=== PATIENT | male | born 1950 | race African-American/Black ===

== ENCOUNTER 2023-04-01 17:21 | Inpatient (IN) | payer OTHER ==
[2023-04-01 20:15] VITALS: BMI 23.1
[2023-04-01] MEDS ORDERED: MAG HYDROX/AL HYDROX/SIMETH 30 ML UNIT-DOSE CUP PO PRN (22:15)
[2023-04-01] MEDS ORDERED: LOPERAMIDE HCL 2 MG CAPSULE PO PRN (22:15)
[2023-04-01] MEDS ORDERED: BENZONATATE 200 MG CAPSULE PO PRN (22:15)
[2023-04-01] MEDS ORDERED: NALOXONE HCL (KLOXXADO) 8 MG SPRAY NS PRN (22:15)
[2023-04-01] MEDS ORDERED: IBUPROFEN 600 MG TABLET (FP) PO PRN (22:15)
[2023-04-01] MEDS ORDERED: NALOXONE HCL 0.4 MG/ML VIAL IM PRN (22:15)
[2023-04-01] MEDS ORDERED: COLLOIDAL OATMEAL 1 BAR EACH TP PRN (22:15)
[2023-04-01] MEDS ORDERED: MAGNESIUM HYDROX 2400MG/30ML ORAL SUSPENSION 30 ML CUP PO PRN (22:15)
[2023-04-01] MEDS ORDERED: IBUPROFEN 400 MG TABLET (FP) PO PRN (22:15)
[2023-04-01] MEDS ORDERED: guaiFENesin 600 MG TABLET.ER (FP) PO PRN (22:15)
[2023-04-01] MEDS ORDERED: AMMONIUM LACTATE 12% LOTION 225 GM BOTTLE TP PRN (22:15)
[2023-04-01] MEDS ORDERED: POLYETHYLENE GLYCOL (HEALTHYLAX) 3350 17 GM PACKET PO PRN (22:15)
[2023-04-01] MEDS ORDERED: BENZOCAINE/MENTHOL (CHLORASEPTIC ) LOZENGE MM PRN (22:15)
[2023-04-01] MEDS ORDERED: ACETAMINOPHEN 325 MG TABLET (FP) PO PRN (22:15)
[2023-04-02] MEDS: MELATONIN 5 MG TABLETS PO SCH ×2 (01:15→21:21)
[2023-04-02] MEDS: TUBERCULIN PPD 5 TU/0.1ML SYRINGE (IN PATIENT USE ONLY) ID ONE ×2 (02:37→02:39)
[2023-04-02] MEDS ORDERED: cloNIDine HCL 0.1 MG TABLET PO ONE (06:22)
[2023-04-02] MEDS: PRENATAL VITAMINS W/ FOLIC ACID TABLET (FP) PO SCH (09:57)
[2023-04-02] MEDS ORDERED: amLODIPine BESYLATE 2.5 MG TABLET (FP) PO SCH (11:00)
[2023-04-02 11:26] LABS: HEMATOCRIT 42.2 % (35.4-49); HEMOGLOBIN 13.6 GM/dL (11.7-16.9); MCH 27.3 pg (25.7-33.7); MCHC 32.2 g/dl (32.0-35.9); MEAN PLT VOLUME 10.2 fl (7.5-11.1); PLATELET COUNT 160 10^3/uL (134-434); RBC 4.97 M/mm3 (4.00-5.60); RDW 15.5 % (11.9-15.9)
[2023-04-02] MEDS: ASPIRIN COATED 81 MG TABLET.EC PO SCH (11:30)
[2023-04-02] MEDS: amLODIPine BESYLATE 2.5 MG TABLET (FP) PO SCH (11:30)
[2023-04-02 11:34] LABS: POTASSIUM 4.4 mmol/L (3.5-5.1)
[2023-04-02 11:57] LABS: ALBUMIN 3.6 g/dl (3.4-5.0); BLOOD UREA NITROGEN 14.9 mg/dL (7-18)
[2023-04-02 11:58] LABS: CALCIUM 8.9 mg/dL (8.5-10.1)
[2023-04-02 12:03] LABS: BILIRUBIN,TOTAL 0.5 mg/dL (0.2-1); TOT PROT 7.3 g/dl (6.4-8.2)
[2023-04-02] MEDS: THIAMINE HCL 100 MG TABLET (FP) PO SCH (21:21)
[2023-04-02] MEDS: levETIRAcetam 500 MG TABLET (FP) PO SCH (21:22)
[2023-04-03] MEDS: amLODIPine BESYLATE 2.5 MG TABLET (FP) PO SCH (06:14)
[2023-04-03 06:47] VITALS: TEMP 97.3
[2023-04-03] MEDS: PRENATAL VITAMINS W/ FOLIC ACID TABLET (FP) PO SCH (10:14)
[2023-04-03] MEDS: ASPIRIN COATED 81 MG TABLET.EC PO SCH (10:14)
[2023-04-03] MEDS: PANTOPRAZOLE 20 MG TABLET PO SCH (10:14)
[2023-04-03] MEDS: levETIRAcetam 500 MG TABLET (FP) PO SCH ×2 (10:14→21:36)
[2023-04-03 12:07] LABS: EPI CELLS 22 /uL (0-25.1); HYALINE CASTS 9 /uL (0-3.1); URINE APPEARANCE CLEAR; URINE BACTERIA 55 /uL (0-1359); URINE BILIRUBIN NEGATIVE (NEGATIVE); URINE COLOR YELLOW; URINE GLUCOSE (UA) NEGATIVE (NEGATIVE); URINE KETONE NEGATIVE (NEGATIVE); URINE LEUK ESTERASE 2+ (NEGATIVE); URINE NITRITE NEGATIVE (NEGATIVE); URINE PROTEIN NEGATIVE (NEGATIVE); URINE RBC 560 /uL (0-23.9); URINE UROBILINOGEN 0.2 mg/dL (0.2-1.0); URINE WBC 157 /uL (0-25.8)
[2023-04-03] MEDS: THIAMINE HCL 100 MG TABLET (FP) PO SCH (21:36)
[2023-04-03] MEDS: MELATONIN 5 MG TABLETS PO SCH (21:36)
[2023-04-04] MEDS: amLODIPine BESYLATE 2.5 MG TABLET (FP) PO SCH (06:32)
[2023-04-04 09:02] VITALS: BP 126/62; PULSE 59; RESP 16
[2023-04-04] MEDS: PANTOPRAZOLE 20 MG TABLET PO SCH (09:28)
[2023-04-04] MEDS: levETIRAcetam 500 MG TABLET (FP) PO SCH (09:28)
[2023-04-04] MEDS: ASPIRIN COATED 81 MG TABLET.EC PO SCH (09:28)
[2023-04-04] MEDS: PRENATAL VITAMINS W/ FOLIC ACID TABLET (FP) PO SCH (09:28)
== END 2023-04-04 10:50 | disposition left against medical advice (07) | DRG 770 ==
LOC: YASAS 17:21 → Y3W 23:30
PROVIDERS: ADMIT Allergy & Immunology; ATTEND Psychiatry & Neurology Pain Medicine
PROC: HZ42ZZZ Group Counseling for Substance Abuse Treatment, Cognitive-Behavioral (ICD-10-PCS; principal; 2023-04-01)
DX: F10.20 Alcohol dependence, uncomplicated (principal); I16.0 Hypertensive urgency; K21.9 Gastro-esophageal reflux disease without esophagitis; Z85.46 Personal history of malignant neoplasm of prostate
CPT/HCPCS: 36415; 80053; 81003; 82550; 84484; 85027; 86780; 87635; 87811; 93005; 93010